=== PATIENT | male | born 1945 | race Caucasian/White ===

== ENCOUNTER 2024-04-10 17:53 | Emergency (ER) | payer MEDICARE, OTHER, SELFPAY ==
[2024-04-10 17:55] VITALS: BP 167/98
--- NOTE | 2024-04-10 18:58 | ED.GENMED ---
History of Present Illness
General
Chief Complaint: Oral/Mouth Problem
Source: patient
Exam Limitations: none
Time Seen by Provider: 04/10/24 18:49
Nursing documentation reviewed up to this point in time: agreed with
History of Present Illness
History of Present Illness:
This is a 78-year-old male with past medical history of hypertension, hyperlipidemia, previous stroke, pacemaker in place, on baby aspirin daily, presenting emergency department today with persistent bleeding following biting his tongue. Patient
states that he was eating lunch today when he states he began to hard and started to have pain in his tongue and noticed bleeding. Patient states that he applied pressure to the area and wash that area well, however it continued to bleed. Patient
states that this went on for a few hours today before he started to report to emergency department. Patient states that after arriving to emergency department, it seemed to resolve for a bit of time but it did start again. Patient denies any
dizziness, lightheadedness.
Review of Systems
Review of Systems
All Other Systems: ROS reviewed and negative except as documented in HPI and ROS
Phy Exam
Physical Exam
Physical Exam:
General: Patient is well appearing and in no acute distress; non-toxic
Skin: Warm and dry, no rashes or lesions
Head: Normocephalic, atraumatic
Eyes: Sclera non-icteric. EOMs intact.
Cardiac: Regular rate
Pulm: Normal respiratory effort
Mouth: There is a very small superficial laceration to the right anterior tongue. Actively bleeding.
Neuro: CN II-XII intact, no focal neurologic deficits.
Psychiatric: Appropriate mood and affect.
Course
Orders/Labs/Results
Orders:
Orders
04/10/24 19:27
Tranexamic Acid 1,000 mg .ROUTE .STK-MED ONE
Vital Signs
Initial and Last Documented VS:
Initial Vital Signs
Temp Pulse Resp BP Pulse Ox
98.2 F 60 16 167/98 100
04/10/24 17:55 04/10/24 17:55 04/10/24 17:55 04/10/24 17:55 04/10/24 17:55
Last Documented Vital Signs
Temp Pulse Resp BP Pulse Ox
98.2 F 60 16 167/98 100
04/10/24 17:55 04/10/24 17:55 04/10/24 17:55 04/10/24 17:55 04/10/24 17:55
MDM/Problems Addressed
Differential Diagnosis Includes:
ddx include abrasion, laceration, burn, nerve injury
MDM/Problems Addressed:
Tongue laceration:
This is a 78-year-old male with past medical history of hypertension, hyperlipidemia, previous stroke, pacemaker in place, on baby aspirin daily, presenting emergency department today with persistent bleeding following biting his tongue. The
bleeding stopped on its own here in the emergency department but then started up again. TXA on gauze pad was applied to his wound with pressure. Laceration not deep or extensive enough for suture repair. Bleeding well-controlled with TXA.
Patient stable for discharge. Discussed soft food diet.
Chronic conditions affecting care:
htn, hlp, hx of stroke
*Pulse Oximetry
Patient hypoxic: no
*Critical Care Note
Total Time (30-74mins, 75-104mins- exclusive of procedures): Not Applicable
Data Reviewed
Review of Other/Old Records Reveals: Records (No recent ER physician documentation to review) and Discharge Summary (No discharge summary to review)
Source: patient and records
Patient Management
Escalation/DeEscalation of care consider admission/obs:
Patient stable for discharge. Reviewed case with my attending Dr. Cesar.
ED Attending Note
-
Portions of this chart may have been created with voice recognition software.� Occasional wrong word or��sound alike� substitutions may have occurred due to the inherent limitations of voice recognition software.
Discharge Plan
Departure
Patient Disposition: Home (Routine Discharge)
Date of Disposition: 04/10/24
Time of Disposition: 19:55
Patient with high blood pressure during this ER visit?: Yes
Condition: Good
Discharge Problem:
Laceration of tongue
Instructions: BLOOD PRESSURE
Activity Restrictions/Additional Instructions:
Please skip your dose of aspirin tonight but please resume tomorrow.
Please eat soft foods for the next few days and avoid hot foods.
Please return to the emergency department should your bleeding persist, should you have lightheadedness, dizziness, shortness of breath, chest pain, abdominal pain, or any other symptoms concerning to you.
Interventions
Interventions:
*Risk Screen - Suicide Last Done: 04/10/24 18:51
*General Assessment Last Done: 04/10/24 18:51
*Neglect/Abuse Screening Last Done: 04/10/24 18:51
ED- Fall Risk Assessment Last Done: 04/10/24 18:51
*ED COVID-19 Vaccine History Last Done: 04/10/24 17:55
*Nursing Disposition Last Done: 04/10/24 20:06
Discharge Date and Time
Discharge Date/Time: 04/10/24 20:07
Print Language: [id number]
== END 2024-04-10 20:07 | disposition home or self-care (01) ==
LOC: EMR 17:53
PROVIDERS: EMERGENCY PHYSICIAN Emergency Medicine; FAMILY PHYSICIAN Family Medicine
DX: S01.512A Laceration without foreign body of oral cavity, initial encounter (principal); X58.XXXA Exposure to other specified factors, initial encounter; E78.00 Pure hypercholesterolemia, unspecified; I10 Essential (primary) hypertension; Z86.73 Personal history of transient ischemic attack (TIA), and cerebral infarction without residual deficits; Z95.0 Presence of cardiac pacemaker; Z79.82 Long term (current) use of aspirin
CPT/HCPCS: 99282